=== PATIENT | male | born 1975 | race Caucasian/White ===

== ENCOUNTER → 2017-03-15 | Outpatient (CLI) | payer MEDICARE, MEDICAID ==
--- NOTE | 2017-03-15 14:25 | RADIOLOGY REPORT (SQ) ---
EXAM DESCRIPTION: CHEST PA/LATERAL COMPLETED DATE/TIME: 03/15/2017 2:13 pm REASON FOR STUDY: COUGH COMPARISON: 09/08/2011 EXAM PARAMETERS: NUMBER OF VIEWS: two views TECHNIQUE: Digital Frontal and Lateral radiographic views of the chest acquired. RADIATION DOSE: NA LIMITATIONS: none FINDINGS: LUNGS AND PLEURA: No opacities, masses or pneumothorax. No pleural effusion. MEDIASTINUM AND HILAR STRUCTURES: No masses or contour abnormalities. HEART AND VASCULAR STRUCTURES: Heart normal size. No evidence for failure. BONES: No acute findings. HARDWARE: None in the chest. OTHER: No other significant finding. IMPRESSION: NO SIGNIFICANT RADIOGRAPHIC FINDING IN THE CHEST. TECHNICAL DOCUMENTATION: JOB ID: [id number] [employer]- All Rights Reserved
== END ==
LOC: OD 13:57
PROVIDERS: ATTEND Family Medicine
DX: R05 Cough (principal)
CPT/HCPCS: 71020

== ENCOUNTER 2017-03-27 18:02 | Emergency (ER) | payer MEDICARE, MEDICAID ==
[2017-03-27 18:10] VITALS: BP 128/77
--- NOTE | 2017-03-27 18:33 | ER Document Report ---
HPI - HPI Patient complains to provider of: knee pain and swelling Pain Level: 4 Context: 41-year-old male with past medical history gout here with complaints of left knee pain for the past 3 days. He states that he has had pain in that knee in the past. No fevers. He has tried Allopurinol with no relief. No trauma to the area. Denies redness chest pain shortness of breath. No prior history of DVT or family history of same. No known history of cancer or blood clotting disorders. Denies recent surgery or prolonged immobilization. Associated Symptoms: None Exacerbated by: Movement, Walking Relieved by: Denies Similar symptoms previously: Yes Recently seen / treated by doctor: No - ROS Systems Reviewed and Negative: Yes All other systems reviewed and negative - CONSTITUTIONAL Constitutional: DENIES: Fever - CARDIOVASCULAR Cardiovascular: DENIES: Chest pain - RESPIRATORY Respiratory: DENIES: Trouble Breathing Past Medical History - General Information source: Patient - Social History Smoking Status: Current Every Day Smoker Frequency of alcohol use: None Drug Abuse: None Lives with: Family Family History: Reviewed & Not Pertinent - Past Medical History Cardiac Medical History: Reports: Hx Hypercholesterolemia, Hx Hypertension Renal/ Medical History: Denies: Hx Peritoneal Dialysis Psychiatric Medical History: Reports: Hx Attention Deficit Hyperactivity Disorder, Hx Bipolar Disorder Past Surgical History: Reports: Hx Abdominal Surgery - 18 in large intestine removed, Hx Bowel Surgery, Hx Cholecystectomy - Immunizations Hx Diphtheria, Pertussis, Tetanus Vaccination: No Vertical Provider Document - CONSTITUTIONAL Agree With Documented VS: Yes Exam Limitations: No Limitations - INFECTION CONTROL TRAVEL OUTSIDE OF THE [place] IN LAST 30 DAYS: No - HEENT HEENT: Atraumatic, PERRLA - NECK Neck: Normal Inspection, Supple - RESPIRATORY Respiratory: Breath Sounds Normal O2 Sat by Pulse Oximetry: 97 - CARDIOVASCULAR Cardiovascular: Regular Rate, Regular Rhythm - MUSCULOSKELETAL/EXTREMETIES Musculoskeletal/Extremeties: Tender, Edema - right knee swollen and warm, no erythema. no effusion Course - Re-evaluation Re-evalutation: 03/27/17 18:35 Concern for gout flare versus osteoarthritis versus DVT Patient has minimal risk factors for DVT therefore think this is unlikely Will discharge home with prescriptions for prednisone and indomethacin (patient states his kidneys with work normally) Patient understands and agrees to the plan of care - Vital Signs Vital signs: Temp Pulse Resp BP Pulse Ox 99.2 F 109 H 18 128/77 H 97 03/27/17 18:07 08/16/17 18:07 03/27/17 18:07 03/27/17 18:07 03/27/17 18:07 Discharge - Discharge Clinical Impression: Right knee pain Qualifiers: Chronicity: acute Qualified Code(s): M25.561 - Pain in right knee Condition: Stable Disposition: HOME, SELF-CARE Instructions: Gout (OM), Gout Diet (OM), Steroid Medication Injection Additional Instructions: You were given a shot of steroid medication. This shot will last for 3 days Take anti-inflammatory pain medication as prescribed follow up with your primary care provider tomorrow for further evaluation and treatment Prescriptions: Indomethacin [Indocin 25 Mg Capsule] 25 mg PO BID #10 capsule Indomethacin [Indocin 50 Mg Capsule] 50 mg PO TID #30 capsule
[2017-03-27] MEDS ORDERED: DEXAMETHASONE SOD PHOS INJ 10 MG/1 ML VIAL IV ONE (18:36)
== END 2017-03-27 19:03 | disposition home or self-care (01) ==
LOC: ER 18:02
DX: M25.561 Pain in right knee (principal); M25.461 Effusion, right knee; Z87.39 Personal history of other diseases of the musculoskeletal system and connective tissue; I10 Essential (primary) hypertension; F17.200 Nicotine dependence, unspecified, uncomplicated
CPT/HCPCS: 99283; 96374; J1100

== ENCOUNTER 2017-10-11 07:22 | Day surgery (SDC) | payer MEDICARE, MEDICAID ==
[2017-10-11] MEDS ORDERED: MIDAZOLAM 2 MG/2 ML INJ ONE ×2 (08:47→10:26)
[2017-10-11] MEDS ORDERED: PROPOFOL INJ 200 MG/20 ML VIAL IV ONE (10:26)
[2017-10-11] MEDS ORDERED: ONDANSETRON HCL INJ/PF 4 MG/2 ML SDV IV PRN (11:16)
[2017-10-11] MEDS ORDERED: DIPHENHYDRAMINE HCL 50 MG/ML VIAL IV PRN (11:16)
[2017-10-11] MEDS ORDERED: SIMETHICONE 80 MG TAB.CHEW PO PRN (12:01)
[2017-10-11] MEDS ORDERED: DEXTROSE 5%-1/2 NORMAL SALINE 1,000 ML IV PRN (12:01)
[2017-10-11] MEDS ORDERED: ACETAMINOPHEN 325 MG TABLET PO PRN (12:01)
[2017-10-11] MEDS ORDERED: PROMETHAZINE HCL INJ 25 MG/1 ML VIAL INJ PRN (12:02)
--- NOTE | 2017-10-11 12:45 | Operative Report ---
Operative Report DATE OF SURGERY: 10/11/17 Operative Report: The risks, benefits and alternatives of the procedure including risks of bleeding, perforation requiring surgery are explained to the patient in detail and informed consent is obtained. Patient is brought back to the operating room and placed in a left, lateral decubital position. Timeout was called. Propofol medications administered. A rectal examination is done which did not reveal any masses, tears or fissures. An Olympus videoscope was inserted into the patient's rectum. The scope was then carefully advanced all the way to the cecum. The cecum was identified by the usual anatomical landmarks including the ileocecal valve as well as the appendiceal office. Photodocumentation is obtained. The scope was then sequentially pulled back via the various segments of the colon including the ascending colon, hepatic flexure, transverse colon, splenic flexure, descending colon finding to the rectosigmoid portions of the colon. Retroflexion maneuvers performed. PREOPERATIVE DIAGNOSIS: Rectal bleeding POSTOPERATIVE DIAGNOSIS: Internal hemorrhoids. Moderate side inflammation status post biopsy. Mild diverticulosis in the sigmoid, no evidence of diverticulitis. Cecal polyp removed via snare polypectomy and polyp retrieved. OPERATION: Colonoscopy with snare polypectomy. Colonoscopy with biopsy SURGEON: BELLE WALLACE ANESTHESIA: LMAC TISSUE REMOVED OR ALTERED: As noted above. COMPLICATIONS: None. ESTIMATED BLOOD LOSS: None. INTRAOPERATIVE FINDINGS: As noted above. PROCEDURE: Patient tolerated procedure well. No immediate postprocedure comp occasions are noted. Patient discharged in good condition. Discharge date October 11, 2017. Discharge diet: Regular. Discharge activity: Regular. 2-3 week follow-up to discuss findings. 3-5 year surveillance colonoscopy. Patient is instructed call the office or proceed to the emergency room should there be any further problems or questions. We will wait on pathology.
[2017-10-11 13:28] VITALS: BP 112/81
== END 2017-10-11 13:15 | disposition home or self-care (01) ==
LOC: OROUT 07:22
PROVIDERS: ATTEND Internal Medicine Gastroenterology
PROC: 0DBH8ZX Excision of Cecum, Via Natural or Artificial Opening Endoscopic, Diagnostic (ICD-10-PCS; principal; 2017-10-11 10:00)
DX: D12.0 Benign neoplasm of cecum (principal); K64.8 Other hemorrhoids; K57.30 Diverticulosis of large intestine without perforation or abscess without bleeding; K52.9 Noninfective gastroenteritis and colitis, unspecified; K92.1 Melena; E78.2 Mixed hyperlipidemia; D64.9 Anemia, unspecified; M10.09 Idiopathic gout, multiple sites; Z87.891 Personal history of nicotine dependence; Z79.899 Other long term (current) drug therapy; Z88.8 Allergy status to other drugs, medicaments and biological substances
CPT/HCPCS: 45380; 45385; 88305 ×2; J2250; J2704; 812

== ENCOUNTER 2018-09-26 21:30 | Emergency (ER) | payer MEDICARE, MEDICAID ==
[2018-09-27] MEDS ORDERED: AMOXICILLIN TR/POT CLAVULANATE 500-125 MG TAB PO ONE (00:27)
[2018-09-27] MEDS ORDERED: ACETAMINOPHEN 325 MG TABLET PO ONE (00:28)
[2018-09-27] MEDS ORDERED: IBUPROFEN 600 MG TABLET PO ONE (00:28)
--- NOTE | 2018-09-27 00:35 | ER Document Report ---
ED General - General Chief Complaint: Dog Bite Stated Complaint: POSSIBLE DOG BITE Time Seen by Provider: 09/27/18 00:03 Primary Care Provider: JENNIE DOHERTY DO [Primary Care Provider] - Follow up as needed Notes: Patient is a 43-year-old male without pertinent medical history who presents after being bitten on his left hand by his son's dog. This was a pit bull. Patient states this occurred several hours prior to arrival. Notes a dull, throbbing, constant pain diffusely to his left hand. Nothing seems to improve or worsen the pain. No additional injuries. His tetanus is up-to-date. Dog is fully vaccinated. Has not seen the primary care doctor regarding today's concerns. TRAVEL OUTSIDE OF THE [place] IN LAST 30 DAYS: No - Related Data Allergies/Adverse Reactions: divalproex sodium [From Depakote] Allergy (Verified 10/04/17 11:10) Difficulty breathing Past Medical History - General Information source: Patient - Social History Smoking Status: Never Smoker Frequency of alcohol use: None Drug Abuse: None Lives with: Family Family History: Reviewed & Not Pertinent Patient has suicidal ideation: No Patient has homicidal ideation: No - Past Medical History Cardiac Medical History: Reports: Hx Hypercholesterolemia Denies: Hx Coronary Artery Disease, Hx Heart Attack, Hx Hypertension Pulmonary Medical History: Denies: Hx Asthma, Hx Bronchitis, Hx COPD, Hx Pneumonia Neurological Medical History: Denies: Hx Cerebrovascular Accident, Hx Seizures Renal/ Medical History: Denies: Hx Peritoneal Dialysis Musculoskeletal Medical History: Denies Hx Arthritis Psychiatric Medical History: Reports: Hx Attention Deficit Hyperactivity Disorder, Hx Bipolar Disorder Past Surgical History: Reports: Hx Abdominal Surgery - 18 in large intestine removed, Hx Bowel Surgery, Hx Cholecystectomy - Immunizations Hx Diphtheria, Pertussis, Tetanus Vaccination: Yes Review of Systems - Review of Systems Notes: Constitutional: Negative for fever. Eyes: Negative for visual changes. ENT: Negative for facial injury Cardiovascular: Negative for chest injury. Respiratory: Negative for shortness of breath. Gastrointestinal: Negative for abdominal injury. Genitourinary: Negative for genital injury Musculoskeletal: Positive for left hand injury Skin: Positive for laceration/abrasions. Neurological: Negative for head injury. Physical Exam - Vital signs Vitals: Temp Pulse Resp BP Pulse Ox 98.9 F 108 H 16 125/78 98 09/26/18 22:04 09/26/18 22:04 09/26/18 22:04 09/26/18 22:04 09/26/18 22:04 Interpretation: Tachycardic Notes: PHYSICAL EXAMINATION: GENERAL: Well-appearing, well-nourished and in no acute distress. HEAD: Atraumatic, normocephalic. EYES: sclera anicteric, conjunctiva are normal. ENT: Moist mucous membranes. NECK: Normal range of motion LUNGS: Normal work of breathing HEART: 2+ radial pulses bilaterally, capillary refill less than 1 second in all digits of the left hand. EXTREMITIES: no pitting or edema. No cyanosis. Full flexion and extension of all digits of the left hand at the DIP, PIP and MCP including against r esistance. NEUROLOGICAL: No focal neurological deficits. Moves all extremities spontaneously and on command. PSYCH: Normal mood, normal affect. SKIN: Warm, Dry, normal turgor, multiple superficial abrasions and small puncture wounds over the left hand diffusely most localized to the left fourth digit. Course - Re-evaluation Re-evalutation: 09/27/18 00:29 Patient presents with multiple superficial abrasions and 2 small puncture wounds to the left fourth finger as well as abrasions and lacerations of the hand after being bitten by his son's pit bull. Full flexion extension of all digits at the DIP, PIP and MCP including against resistance. Wounds were irrigated. Patient's tetanus is already up-to-date. Dog is known to be fully immunized. X-ray without any evidence of crush injury fractures. Patient has been started on Augmentin prophylaxis. At this time will discharge with return precautions and follow-up recommendations. Verbal discharge instructions given a the bedside and opportunity for questions given. Medication warnings reviewed. Patient is in agreement with this plan and has verbalized understanding of return precautions and the need for primary care follow-up in the next 24-72 hours. - Vital Signs Vital signs: Temp Pulse Resp BP Pulse Ox 98.9 F 108 H 16 125/78 98 09/26/18 22:04 09/26/18 22:04 09/26/18 22:04 09/26/18 22:04 09/26/18 22:04 - Diagnostic Test Radiology reviewed: Image reviewed, Reports reviewed Radiology results interpreted by me: 09/27/18 00:30 Left hand x-ray: No acute fracture or dislocation Discharge - Discharge Clinical Impression: Dog bite of left hand Qualifiers: Encounter type: initial encounter Qualified Code(s): S61.452A - Open bite of left hand, initial encounter Condition: Good Disposition: HOME, SELF-CARE Additional Instructions: Please monitor very closely for any signs of infection from your dog bite including spreading redness from the area, pus from the wound, or worsening pain. Clean the area twice daily with soap and water and then apply topical antibiotic ointment. Please take all the antibiotics that you were prescribed until they are gone. Follow-up with your primary care physician as needed. Prescriptions: Amox Tr/Potassium Clavulanate [Augmentin 875-125 Tablet] 1 tab PO BID 5 Days tablet Referrals: JENNIE DOHERTY DO [Primary Care Provider] - Follow up as needed
--- NOTE | 2018-09-27 00:58 | RADIOLOGY REPORT (SQ) ---
EXAM DESCRIPTION: XR HAND 3 OR MORE VIEWS COMPLETED DATE/TME: 09/27/2018 00:27 CLINICAL HISTORY: 43 years, Male, dog bite, eval crush injury COMPARISON: None. NUMBER OF VIEWS: TECHNIQUE: LIMITATIONS: None. FINDINGS: No fracture or dislocation. No evidence of radiopaque foreign body within the soft tissues. IMPRESSION: No fracture or dislocation. copyright 2010 [employer]- All Rights Reserved
[2018-09-27 01:40] VITALS: BP 131/72
== END 2018-09-27 01:41 | disposition home or self-care (01) ==
LOC: ER 21:30
DX: S61.452A Open bite of left hand, initial encounter (principal); S61.255A Open bite of left ring finger without damage to nail, initial encounter; W54.0XXA Bitten by dog, initial encounter; Y93.K9 Activity, other involving animal care; Z88.8 Allergy status to other drugs, medicaments and biological substances
CPT/HCPCS: 99283; 73130; A9270 ×3

== ENCOUNTER 2020-07-03 12:27 | Emergency (ER) | payer MEDICARE, MEDICAID ==
[2020-07-03 12:36] VITALS: BP 148/80
[2020-07-03] MEDS ORDERED: KETOROLAC TROMETHAMINE 60 MG/2 ML SDV IM ONE (13:46)
[2020-07-03] MEDS ORDERED: DEXAMETHASONE SOD PHOSPHATE INJ 4 MG/1 ML VIAL IV ONE (13:46)
--- NOTE | 2020-07-03 13:51 | ER Document Report ---
ED Extremity Problem, Lower - General Chief Complaint: Knee Pain Stated Complaint: KNEE PAIN/COUGH Time Seen by Provider: 07/03/20 13:42 Primary Care Provider: JENNIE DOHERTY DO [Primary Care Provider] - Follow up as needed Notes: CHIEF COMPLAINT: Right knee pain for 2 days HPI: 45-year-old male with longstanding history of gout per the patient presenting with right knee pain for 2 days which he associates with his gouty arthritis. Denies calf pain. Denies trauma. States the pain is significant enough that when he steps out he feels like the knee is going to give out. Normally follows with a primary care provider for this takes allopurinol daily which is still on but states given the recent onset of the pain he decided to come to the emergency department today. States he normally gets a shot of a steroid and pain medication and his knee gets better faster. ROS: See HPI - all other systems were reviewed and are otherwise negative Constitutional: no fever Integumentary: no rash Allergy: no hives Musculoskeletal: + extremity pain or swelling Neurological: no numbness/tingling MEDICATIONS: I agree with the patient medications as charted by the RN. ALLERGIES: I agree with the allergies as charted by the RN. PAST MEDICAL HISTORY/PAST SURGICAL HISTORY: Reviewed and agree as charted by RN. SOCIAL HISTORY: Reviewed and agree as charted by RN. FAMILY HISTORY: No significant familial comorbid conditions directly related to patient complaint EXAM: Reviewed vital signs as charted by RN. CONSTITUTIONAL: Alert and oriented and responds appropriately to questions. Well-appearing; well-nourished HEAD: Normocephalic; atraumatic EYES: Conjunctivae clear, sclerae non-icteric ENT: normal nose; no rhinorrhea; moist mucous membranes NECK: Supple without meningismus CARD: symmetric distal pulses RESP: Normal chest excursion without splinting or tachypnea ABD/GI: non-distended BACK: The back appears normal EXT: Normal ROM in all joints; no cyanosis, no effusions, no edema. There is no visible soft tissue swelling or overlying erythema to the right knee he is able to fully range the knee without difficulty. Negative anterior drawer sign. No laxity on varus or valgus rotation. Popliteal pulses present in the right lower extremity. Sensation is intact in the distal right lower extremity. SKIN: Normal color for age and race; warm; dry; good turgor; no acute lesions noted NEURO: Moves all extremities equally; Motor and sensory function intact PSYCH: The patient's mood and manner are appropriate. Grooming and personal hygiene are appropriate. MDM: 45-year-old male complaining of what he considers to be a gout attack in the right knee. It is not hot it is not red it is not swollen at this time. He states that normally he would get a shot of an anti-inflammatory and a steroid and he will feel much better. No indication for imaging study today. He has no calf pain suggesting a DVT at this time. He has crutches at home. We will give patient Decadron, Toradol in the ER discharge home on Indocin to follow-up with his PCP TRAVEL OUTSIDE OF THE [place] IN LAST 30 DAYS: No - Related Data Allergies/Adverse Reactions: divalproex sodium [From Depakote] Allergy (Verified 07/03/20 13:39) Difficulty breathing Home Medications: concerta. lunesta. allopurinlol. doesnt know the rest Past Medical History - Social History Smoking Status: Former Smoker Chew tobacco use (# tins/day): No Frequency of alcohol use: None Drug Abuse: None Family History: Reviewed & Not Pertinent Patient has homicidal ideation: No - Past Medical History Cardiac Medical History: Reports: Hx Hypercholesterolemia Denies: Hx Coronary Artery Disease, Hx Heart Attack, Hx Hypertension Pulmonary Medical History: Denies: Hx Asthma, Hx Bronchitis, Hx COPD, Hx Pneumonia Neurological Medical History: Denies: Hx Cerebrovascular Accident, Hx Seizures Renal/ Medical History: Denies: Hx Peritoneal Dialysis Musculoskeletal Medical History: Denies Hx Arthritis Psychiatric Medical History: Reports: Hx Attention Deficit Hyperactivity Disorder, Hx Bipolar Disorder Past Surgical History: Reports: Hx Abdominal Surgery - 18 in large intestine removed, Hx Bowel Surgery, Hx Cholecystectomy - Immunizations Hx Diphtheria, Pertussis, Tetanus Vaccination: Yes Physical Exam - Vital signs Vitals: Temp Pulse Resp BP Pulse Ox 99.1 F 94 15 148/80 H 100 07/03/20 12:34 07/03/20 12:34 07/03/20 12:34 07/03/20 12:34 07/03/20 12:34 Course - Vital Signs Vital signs: Temp Pulse Resp BP Pulse Ox 99.1 F 94 15 148/80 H 100 07/03/20 12:34 07/03/20 12:34 07/03/20 12:34 07/03/20 12:34 07/03/20 12:34 Discharge - Discharge Clinical Impression: Knee pain, right Qualifiers: Chronicity: acute Qualified Code(s): M25.561 - Pain in right knee Condition: Stable Disposition: HOME, SELF-CARE Additional Instructions: Take the Indocin for any continued pain in the knee. Follow-up with your primary care provider in 1 to 2 days for recheck and reevaluation especially if you develop increased redness or swelling over the knee use your crutches at home to help with weightbearing Prescriptions: Indomethacin [Indocin 25 Mg Capsule] 25 mg PO TID #21 capsule Referrals: JENNIE DOHERTY DO [Primary Care Provider] - Follow up as needed
[2020-07-03] MEDS ORDERED: DEXAMETHASONE SOD PHOSPHATE INJ 4 MG/1 ML VIAL IM ONE (14:27)
== END 2020-07-03 15:07 | disposition home or self-care (01) ==
LOC: ER 12:27
DX: M10.9 Gout, unspecified (principal); M25.561 Pain in right knee; F90.9 Attention-deficit hyperactivity disorder, unspecified type; Z79.899 Other long term (current) drug therapy; Z87.891 Personal history of nicotine dependence; Z88.8 Allergy status to other drugs, medicaments and biological substances
CPT/HCPCS: 99284; 96372; J1100; J1885